=== PATIENT | female | born 1995 | race Caucasian/White ===

== ENCOUNTER 2019-08-13 23:09 | Emergency (ER) | payer SELFPAY ==
[~2019-08-13] VITALS: Ht 157.5 cm; Wt 45.6 kg
[2019-08-14 00:17] LABS: BILIRUBIN, URINE MANUAL NEGATIVE (NEGATIVE); GLUCOSE, URINE (UA) MANUAL NEGATIVE (NEGATIVE); KETONE, URINE MANUAL NEGATIVE (NEGATIVE); UROBILINOGEN, URINE MANUAL NORMAL (NORMAL)
[2019-08-14 00:23] LABS: RBC, URINE TNTC /hpf (0-3); SQUAMOUS EPITHELIAL CELL URINE SMALL AMOUNT /hpf (SMALL AMT)
[2019-08-14 00:24] LABS: BACTERIA, URINE MOD AMOUNT; HYALINE CAST, URINE NONE SEEN /lpf (0-1); MUCUS, URINE SMALL AMOUNT (NEGATIVE)
[2019-08-14] MEDS ORDERED: PYRI1TAB5 PO (03:52)
[2019-08-14] MEDS ORDERED: CIPR-249 PO (03:52)
[2019-08-14] MEDS ORDERED: PHENAZOPYRIDINE 100 MG TAB PO ONE (04:00)
[2019-08-14] MEDS ORDERED: CIPROFLOXACIN 500 MG TAB PO ONE (04:00)
[2019-08-14 04:03] VITALS: BP 111/68
== END 2019-08-14 04:03 | disposition home or self-care (01) ==
LOC: M ED 23:09
DX: R30.0 Dysuria (principal); N39.0 Urinary tract infection, site not specified